=== PATIENT | female | born 1965 | race Caucasian/White ===

== ENCOUNTER 2017-05-01 18:08 | Emergency (ER) | payer OTHER | END 2017-05-01 20:20 | disposition home or self-care (01) | LOC: FER 18:08 | DX: S63.501A Unspecified sprain of right wrist, initial encounter (principal); Z88.1 Allergy status to other antibiotic agents; W19.XXXA Unspecified fall, initial encounter; Y92.009 Unspecified place in unspecified non-institutional (private) residence as the place of occurrence of the external cause | CPT/HCPCS: 73110; 99283 ==

== ENCOUNTER 2021-05-02 22:03 | Emergency (ER) | payer OTHER ==
[~2021-05-02 22:03] MED LIST: ACCUPRIL20 MG PO; BACLOFEN 20MG T20 MG PO; BUT/APAP/CAF PO; EFFEXOR XR150 MG PO; ESZOPICLONE3 MG PO; GABAPENTIN800 MG PO; HYDROCODON-ACE1 EAC2 PO; LIPITOR 10MG TA10 MG PO; NAPROXEN500 MG PO; NORCO 7.5-3251 EACH PO; NORVASC5 MG PO; ONDANSETRON ODT4 MG PO; PRILOSEC20 MG PO; TOPIRAMATE ER200 MG PO; VENTOLIN HFA IN18 GM INH; VOLTAREN100 GM TOP; XANAX0.25 MG PO; XANAX2 MG PO
[2021-05-02] MEDS ORDERED: ETODOLAC300 MG PO (23:19)
[2021-05-02] MEDS ORDERED: CYCLOBENZAPRINE10 MG PO (23:19)
[2021-05-02] MEDS ORDERED: MEDROL 4MG DOSEP4 MG PO (23:19)
[2021-06-04] MEDS ORDERED: ONDANSETRON ODT4 MG PO (09:57)
[2021-06-04] MEDS ORDERED: HYDROCODON-ACE1 EAC2 PO (10:09)
== END 2021-05-03 00:58 | disposition home or self-care (01) ==
LOC: FER 22:03
DX: M54.41 Lumbago with sciatica, right side (principal); I10 Essential (primary) hypertension; Z88.1 Allergy status to other antibiotic agents; Z79.899 Other long term (current) drug therapy
CPT/HCPCS: 96372; 99283; J1100; J1885